=== PATIENT | female | born 1960 | race Caucasian/White ===

== ENCOUNTER 2021-01-08 17:14 | Emergency (ER) | payer OTHER ==
[~2021-01-08] VITALS: Ht 157.5 cm; Wt 61.2 kg
--- NOTE | 2021-01-08 17:40 | NUR ---
TO ER BED 3, C/O L SIDED ABDOMINAL/FLANK PAIN SINCE THURSDAY P/S 10/13, AAOX4, BREATHING EVEN AND NON LABORED, SALINE LOCK ESTABLISHED BLOOD DRAWN
[2021-01-08] MEDS ORDERED: MORPHINE SULFATE INJ 2 MG/ML DISP.SYRIN IV ONE (18:00)
[2021-01-08] MEDS ORDERED: IV NS 0.9% 1,000 ML BAG IV ONE (18:00)
[2021-01-08] MEDS ORDERED: ONDANSETRON HCL/PF 4 MG/2 ML VIAL IVP ONE (18:00)
[2021-01-08] MEDS ORDERED: ONDANSETRON HCL/PF 4 MG/2 ML VIAL ONE (18:01)
[2021-01-08] MEDS ORDERED: MORPHINE SULFATE INJ 4 MG/ML DISP.SYRIN ONE (18:02)
[2021-01-08 18:03] LABS: BASOPHILS % (AUTO) 0.6 % (0.0-2.0); EOSINOPHILS % (AUTO) 3.1 % (0.0-6.0); HEMATOCRIT 41 % (33-45); HEMOGLOBIN 13.7 g/dL (11.5-14.8); LYMPHOCYTES # (AUTO) 2.4 K/uL (0.8-4.8); LYMPHOCYTES % (AUTO) 34.2 % (20.0-44.0); MEAN CORPUSCULAR HGB CONC 33 g/dl (31.0-36.0); MEAN CORPUSCULAR VOLUME 91 fL (82-100); MONOCYTES # (AUTO) 0.5 K/uL (0.1-1.30); MONOCYTES % (AUTO) 7.7 % (2.0-12.0); NEUTROPHILS # (AUTO) 3.8 K/uL (1.8-8.9); NEUTROPHILS % (AUTO) 54.4 % (43.0-81.0); PLATELET COUNT (AUTO) 253 K/uL (150-450); RED BLOOD CELL COUNT(AUTO) 4.51 MIL/uL (4.0-5.2); WHITE BLOOD COUNT (AUTO) 6.9 K/uL (4.3-11.0)
[2021-01-08 18:14] LABS: CALCIUM, SERUM 8.9 mg/dL (8.5-10.1); CREATININE 0.6 mg/dL (0.6-1.3); POTASSIUM 3.6 mmol/L (3.5-5.1)
[2021-01-08] MEDS ORDERED: IOHEXOL-300 100 ML VIAL IV ONE (18:17)
[2021-01-08] MEDS ORDERED: IV NS 0.9% 250 ML IV ONE (18:18)
[2021-01-08 18:19] LABS: ALBUMIN 3.9 g/dL (3.4-5.0); BILIRUBIN,DIRECT 0.1 mg/dL (0.0-0.2); BILIRUBIN,TOTAL 0.5 mg/dL (0.2-1.0); TOTAL PROTEIN, SERUM 8.3 g/dL (6.4-8.2)
[2021-01-08 19:06] LABS: BILIRUBIN,URINE Negative (NEGATIVE); COLOR,URINE YELLOW (YELLOW); LEUKOCYTE ESTERASE ,URINE Small (NEGATIVE); NITRITE, URINE Negative (NEGATIVE); PH,URINE 6.5 (5.0-8.0); PROTEIN,URINE Negative (NEGATIVE); UGLUCOSE Negative (NEGATIVE); UROBILINOGEN,URINE 0.2 EU/dL (0.2)
[2021-01-08] MEDS ORDERED: KETOROLAC TROMETHAMINE 15 MG/ML VIAL ONE ×2 (19:08→19:32)
[2021-01-08 19:20] LABS: SQUAMOUS EPITHELIAL CELL,UR Many /HPF (None Seen)
[2021-01-08 19:21] LABS: BACTERIA,URINE Many /HPF (None Seen)
[2021-01-08] MEDS ORDERED: CEFTRIAXONE 1GM BAG (ER ONLY) 1 GM/50 ML PIGGYBACK IV ONE (19:30)
[2021-01-08] MEDS ORDERED: KETOROLAC TROMETHAMINE INJ 30 MG/ML VIAL IV ONE (19:30)
[2021-01-08] MEDS ORDERED: CEFTRIAXONE 1 G VIAL ONE (19:32)
--- NOTE | 2021-01-08 19:32 | NUR ---
RECIEVED REPORT FOR CHARLES. VSS RESTING COMFORTABLY IN BED BREATHING EVEN AND UNLABORED
[2021-01-08] MEDS ORDERED: CEFTRIAXONE 1GM BAG (ER ONLY) 50 ML IV ONE (19:36)
[2021-01-08] MEDS ORDERED: TRAM50TA2 PO (20:03)
[2021-01-08] MEDS ORDERED: ONDA4TAB11 PO (20:03)
[2021-01-08] MEDS ORDERED: CEPH500C2 PO ×2 (20:03→20:08)
--- NOTE | 2021-01-08 20:27 | NUR ---
PT DISCHARGED HOME IN STABLE CONDITION. WRITTEN AND VERBAL DISCHARGE INSTRUCTION PROVIDED WELL PRESCRIPTION, LABS, AND CT PROVIDED. PT VERBALIZED UNDERSTANDING. IV LINE REMOVED. VITAL SIGNS STABLE AT TIME FO DISCHARGE
[2021-01-08 20:33] VITALS: BP 120/84
== END 2021-01-08 20:30 | disposition home or self-care (01) ==
LOC: ER 17:19
DX: N12 Tubulo-interstitial nephritis, not specified as acute or chronic (principal); R19.7 Diarrhea, unspecified; K21.9 Gastro-esophageal reflux disease without esophagitis; Z90.49 Acquired absence of other specified parts of digestive tract; Z88.6 Allergy status to analgesic agent; Z88.5 Allergy status to narcotic agent; Z79.899 Other long term (current) drug therapy
CPT/HCPCS: 36415; 74177; 80048; 80076; 81001; 83690; 85025; 87077; 87086; 87186; 96361; 96365; 96375; 99285; J0696 ×2; J1885 ×2; J2270; J2405; J7030; J7050; Q9967